=== PATIENT | female | born 1990 | race Hispanic/Latino ===

== ENCOUNTER 2020-07-24 18:53 | Emergency (ER) | payer SELFPAY ==
[2020-07-24] MEDS ORDERED: ACYCLOVIR 200 MG CAPSULE ONE (19:40)
[2020-07-24] MEDS ORDERED: MAGNESIUM HYDROXIDE 30 ML/UDCUP ONE (19:41)
[2020-07-24] MEDS ORDERED: LIDOCAINE HCL 2% VISCOUS 15 ML UDCUP ONE (19:41)
== END 2020-07-24 19:52 | disposition home or self-care (01) ==
LOC: EDH 18:53
DX: K13.29 Other disturbances of oral epithelium, including tongue (principal)